=== PATIENT | female | born 1990 | race Caucasian/White ===

== ENCOUNTER 2018-03-24 22:18 | Emergency (ER) | payer OTHER ==
--- NOTE | 2018-03-24 22:19 | PDOC ---
History of Present Illness - General Chief Complaint: Pain, Acute Stated Complaint: FELL OFF LADDER HITTING BACK ON STAIRS Time Seen by Provider: 03/24/18 22:19 History Source: Patient Exam Limitations: No Limitations - History of Present Illness Initial Comments: 03/24/18 22:35 This is 27-year-old female who comes in complaining that she fell off the ladder. Patient said she fell about 3-4 feet and landed on a staircase. Patient hit her right side of her hip and buttock. Patient's complaining of pain to the right side of her hip and buttocks. Patient denies hitting her head, patient did not pass out patient denies any other injuries. Allergies: None Past Medical History: none Social history: Lives with family. No smoking. No alcohol. No illicit drugs. Surgical history: None General: No fevers or chills, no weakness, no weight loss HEENT: No change in vision. No sore throat,. No ear pain CardioVascular: no chest discomfort. No shortness of breath Respiratory:No cough, or wheezing. Gastrointestinal: no nausea, vomiting, diarrhea or constipation, No rectal bleeding Genitourinary: No dysuria, hematuria, or frequency Musculoskeletal: Right buttocks/hip pain Neurologic: No headache, vertigo, dizziness or loss of consciousness Psychiatric: nor depression Skin: No rashes or easy bruising Endocrine: no increased thirst or abnormal weight change Allergic: no skin or latex allergy All other systems reviewed and normal GENERAL: The patient is awake, alert, and fully oriented, in no acute distress. HEAD: Normal with no signs of trauma. EYES: Pupils equal, round and reactive to light, extraocular movements intact, sclera anicteric, conjunctiva clear. EXTREMITIES:atraumatic, Normal range of motion, no edema. BACK: There is no visible contusion swelling or ecchymosis there is some tenderness on palpation over the right buttock soft tissue there is some mild tenderness over the posterior pelvis on the right. There is no hip tenderness there is no cervical thoracic lumbar or sacral spine tenderness Neurovascular distal is intact NEUROLOGICAL: Normal speech, normal gait. PSYCH: Normal mood, normal affect. SKIN: Warm, Dry, normal turgor, no rashes or lesions noted. 03/25/11 22:52 X-ray pelvis shows no acute pathology fractures or dislocations Assessment plan: This is a 27-year-old female who comes in status post fall off of a ladder. Patient complaining of right buttocks pain. Patient had an x-ray of her pelvis that was negative for any acute pathology. Patient given Motrin and discharged home. Past History - Past Medical History Allergies/Adverse Reactions: Allergies Allergy/AdvReac Type Severity Reaction Status Date / Time No Known Allergies Allergy Verified 03/24/18 22:22 Home Medications: Ambulatory Orders Albuterol Sulfate Inhaler - [Ventolin HFA Inhaler -] 1 - 2 inh PO QID 11/30/13 Asthma: Yes - Suicide/Smoking/Psychosocial Hx Smoking History: Current some day smoker Number of Cigarettes Smoked Daily: 2 Hx Alcohol Use: Yes (OCC) Substance Use Type: None *DC/Admit/Observation/Transfer Diagnosis at time of Disposition: Contusion, buttock Qualifiers: Encounter type: initial encounter Qualified Code(s): S30.0XXA - Contusion of lower back and pelvis, initial encounter - Discharge Dispostion Disposition: HOME Condition at time of disposition: Stable Decision to Admit order: No - Referrals - Patient Instructions Additional Instructions: Take ibuprofen 600 mg 3 times a day with food don't take on an empty stomach take the ibuprofen for at least 5-6 days. The ibuprofen as an anti-inflammatory and will help with the inflammation as a result of your fall.. Return to the emergency department immediately with ANY new, persistent or worsening symptoms. Continue any medications as previously prescribed by your physician. You should follow up with your primary doctor as soon as possible regarding today's emergency department visit. . Please make sure your doctor reviews the results of your emergency evaluation. Thank you for coming to the Emergency Department today for your care. It was a pleasure to see you today. Please note that your evaluation is INCOMPLETE until you follow-up with your doctor. - Post Discharge Activity
[2018-03-24 22:33] VITALS: BP 145/99; PULSE 106; TEMP 98.4; BMI 24.0
[2018-03-24] MEDS ORDERED: IBUPROFEN 600 MG TABLET (FP) PO ONE ×2 (22:33→22:34)
== END 2018-03-24 23:00 | disposition home or self-care (01) ==
LOC: FER 22:18
DX: S30.0XXA Contusion of lower back and pelvis, initial encounter (principal); W11.XXXA Fall on and from ladder, initial encounter; Y93.89 Activity, other specified; Y92.89 Other specified places as the place of occurrence of the external cause
CPT/HCPCS: 72170-TC-FY; 84703; 99281-25

== ENCOUNTER 2019-04-12 11:20 | Emergency (ER) | payer OTHER ==
[2019-04-12 11:32] VITALS: BP 150/89; PULSE 72; TEMP 98.3; BMI 25.7
--- NOTE | 2019-04-12 11:33 | PDOC ---
History of Present Illness - General Chief Complaint: Injury Stated Complaint: R Middle Finger Injury - History of Present Illness Initial Comments: 04/12/19 11:45 28yo female with pmhx of asthma with R middle finger injury. Pt was visiting her grandmother upstairs in the hospital when she went to close the window and her finger got caught in the window. Pt with pain to R middle distal phalanx. Pt with small lac to palmar side of the finger- no active bleeding- no sutures required and subungal hematoma with lac in nail to release the blood. TTP over distal phalanx. Pt is R hand dominant. No other injuries or complaints. Tetanus utd. Pmhx: asthma Pshx: denies all: nkda Past History - Past Medical History Allergies/Adverse Reactions: Allergies Allergy/AdvReac Type Severity Reaction Status Date / Time No Known Allergies Allergy Verified 04/12/19 11:26 Home Medications: Ambulatory Orders Albuterol Sulfate Inhaler - [Ventolin HFA Inhaler -] 1 - 2 inh PO QID 11/30/13 Asthma: Yes COPD: No - Psycho Social/Smoking Cessation Hx Smoking History: Never smoked Have you smoked in the past 12 months: Yes Number of Cigarettes Smoked Daily: 2 'Breaking Loose' booklet given: 03/24/18 Hx Alcohol Use: No Drug/Substance Use Hx: No Substance Use Type: None Review of Systems - Review of Systems Able to Perform ROS?: Yes Is the patient limited Tunisian proficient: No Constitutional: No: Chills, Fever Respiratory: No: Cough, Shortness of Breath Cardiac (ROS): No: Chest Pain ABD/GI: No: Diarrhea, Nausea, Vomiting, Abdominal cramping : No: Burning Musculoskeletal: Yes: Joint Pain (R middle finger pain) Integumentary: Yes: Other (lac and subungal hematoma to R middle distal phalanx) Neurological: No: Headache, Numbness, Paresthesia All Other Systems: Reviewed and Negative *Physical Exam - Vital Signs Last Vital Signs Temp Pulse Resp BP Pulse Ox 98.3 F 72 16 150/89 100 04/12/19 11:27 04/12/19 11:27 04/12/19 11:27 04/12/19 11:27 04/12/19 11:27 - Physical Exam General Appearance: Yes: Nourished, Appropriately Dressed. No: Apparent Distress HEENT: positive: EOMI, Normal Voice Neck: positive: Supple Respiratory/Chest: positive: Lungs Clear, Normal Breath Sounds. negative: Respiratory Distress Cardiovascular: positive: Regular Rhythm, Regular Rate, S1, S2 Gastrointestinal/Abdominal: positive: Soft. negative: Guarding, Rebound, Tenderness Musculoskeletal: positive: Normal Inspection, Other (ambulatory in the ER with a steady gait) Extremity: positive: Other (R middle finger lac, sensation intact, ttp distal phalanx, subungal hematoma, FROM of the hand and digit, brisk cap refill, no active bleeding) Integumentary: positive: Other (R middle finger with subungal hematoma, lac through nail release subungal blood, ttp distal phalanx, small lac- no active bleeding to palmar surface of R middle finger distal phalanx) Neurologic: positive: Fully Oriented, Alert, Normal Mood/Affect, Motor Strength 08/16 Medical Decision Making - Medical Decision Making 04/12/19 11:50 28yo female with R middle finger injury -small palmar surface lac without active bleeding-superficial, no repair needed -subungal hematoma with lac in nail allowing drainage of the blood -nailbed intact -neurovasc intact -tetanus utd -will send for xray -will monitor and reassess 04/12/19 12:09 no acute fx seen on xray will place in splint will apply abx ointment stable for dc to home 04/12/19 12:13 xray neg discussed local wound care stable for dc to home and follow up with hand Discharge - Discharge Information Problems reviewed: Yes Clinical Impression/Diagnosis: Finger laceration, Hematoma, subungual, finger, right, Finger contusion Condition: Stable Disposition: HOME - Admission No - Follow up/Referral Referrals: Wai Ken DO [Staff Physician] - Hans Todd MD [Staff Physician] - - Patient Discharge Instructions Patient Printed Discharge Instructions: DI for Subdural Hematoma Additional Instructions: Please apply antibiotic ointment to the finger. Please keep the finger elevated. Please apply ice 20 min on and 20 min off. Please make an appointment to see your PMD and the hand specialist. Please return to the ED with any further concerns or complaints. - Post Discharge Activity
== END 2019-04-12 12:33 | disposition home or self-care (01) ==
LOC: FER 11:20
PROC: 2W3JX1Z Immobilization of Right Finger using Splint (ICD-10-PCS; principal; 2019-04-12)
DX: S61.212A Laceration without foreign body of right middle finger without damage to nail, initial encounter (principal); S60.031A Contusion of right middle finger without damage to nail, initial encounter; W20.8XXA Other cause of strike by thrown, projected or falling object, initial encounter; Y93.89 Activity, other specified; Y92.89 Other specified places as the place of occurrence of the external cause
CPT/HCPCS: 73130-TC-RT-FY; 99282-25

== ENCOUNTER 2022-09-21 07:14 | Emergency (ER) | payer OTHER ==
[2022-09-21 07:31] VITALS: RESP 18; BMI 22.6
[2022-09-21] MEDS ORDERED: ACETAMINOPHEN 1000 MG/100 ML BAG IVPB ONE ×2 (07:39→12:01)
[2022-09-21] MEDS ORDERED: SODIUM CHLORIDE 0.9% 500 ML INFUS.BAG IV ONE (07:39)
[2022-09-21] MEDS ORDERED: METOCLOPRAMIDE HCL INJECTION 10 MG/2 ML VIAL IVPUSH ONE (07:39)
[2022-09-21] MEDS ORDERED: METOCLOPRAMIDE HCL INJECTION 10 MG/2 ML VIAL ONE (07:48)
[2022-09-21] MEDS ORDERED: ACETAMINOPHEN INJECTION 100 ML IVPB ONE (07:49)
[2022-09-21] MEDS ORDERED: DEXAMETHASONE SOD PHOSPHATE 10 MG/1 ML VIAL IVPUSH ONE (08:04)
[2022-09-21] MEDS ORDERED: DEXAMETHASONE SOD PHOSPHATE 10 MG/1 ML VIAL ONE (08:09)
[2022-09-21] MEDS ORDERED: ONDANSETRON 4 MG/2 ML VIAL IVPUSH ONE (08:15)
[2022-09-21] MEDS ORDERED: ONDANSETRON 4 MG/2 ML VIAL ONE (08:24)
[2022-09-21 09:01] LABS: BASO % 0.2 % (0-2.0); EOS % 1.7 % (0-4.5); HEMATOCRIT 41.9 % (32.4-45.2); HEMOGLOBIN 14.5 GM/dL (10.7-15.3); LYMPH % 18.9 % (8-40); MCH 30.9 pg (25.7-33.7); MCHC 34.5 g/dl (32.0-36.0); MEAN CELL VOLUME 89.5 fl (80-96); MEAN PLT VOLUME 9.3 fl (7.5-11.1); NEUT % 74.2 % (42.8-82.8); PLATELET COUNT 241 10^3/uL (134-434); RBC 4.68 M/mm3 (3.60-5.2); RDW 13.4 % (11.6-15.6); WHITE BLOOD COUNT 9.8 K/mm3 (4.0-10.0)
[2022-09-21 09:04] LABS: EPI CELLS >36 /uL (0-25.1); HYALINE CASTS 0 /uL (0-3.1); PH,URINE 6.5 (5.0-8.0); URINE APPEARANCE CLEAR; URINE BACTERIA 2373 /uL (0-1359); URINE BILIRUBIN NEGATIVE (NEGATIVE); URINE COLOR YELLOW; URINE GLUCOSE (UA) NEGATIVE (NEGATIVE); URINE KETONE 1+ (NEGATIVE); URINE LEUK ESTERASE NEGATIVE (NEGATIVE); URINE NITRITE NEGATIVE (NEGATIVE); URINE PROTEIN 2+ (NEGATIVE); URINE RBC 7 /uL (0-23.9); URINE UROBILINOGEN 0.2 mg/dL (0.2-1.0); URINE WBC 19 /uL (0-25.8)
[2022-09-21 09:25] LABS: POTASSIUM 3.4 mmol/L (3.5-5.1)
[2022-09-21 09:27] LABS: BLOOD UREA NITROGEN 9.9 mg/dL (7-18); MAGNESIUM 2.1 mg/dL (1.8-2.4)
[2022-09-21 09:31] LABS: CREATININE 0.8 mg/dL (0.55-1.3)
[2022-09-21 09:33] LABS: BILIRUBIN,TOTAL 0.5 mg/dL (0.2-1); TOT PROT 7.6 g/dl (6.4-8.2)
[2022-09-21] MEDS ORDERED: MAGNESIUM SULF 50% (8.12 MEQ/2 ML-1 GM VIAL) IVPB ONE (10:06)
[2022-09-21] MEDS ORDERED: MAGNESIUM SULF 50% (8.12 MEQ/2 ML-1 GM VIAL) ONE (10:10)
[2022-09-21] MEDS ORDERED: KETOROLAC TROMETHAMINE 15 MG/ML VIAL IVPUSH ONE (10:19)
[2022-09-21] MEDS ORDERED: KETOROLAC TROMETHAMINE 15 MG/ML VIAL ONE (10:24)
[2022-09-21 12:25] VITALS: BP 118/79; PULSE 82; TEMP 98.1
== END 2022-09-21 12:34 | disposition home or self-care (01) ==
LOC: JER 07:14
PROC: 3E033NZ Introduction of Analgesics, Hypnotics, Sedatives into Peripheral Vein, Percutaneous Approach (ICD-10-PCS; principal; 2022-09-21)
PROC: 3E033GC Introduction of Other Therapeutic Substance into Peripheral Vein, Percutaneous Approach (ICD-10-PCS; 2022-09-21)
PROC: 3E033GC Introduction of Other Therapeutic Substance into Peripheral Vein, Percutaneous Approach (ICD-10-PCS; 2022-09-21)
PROC: 3E033GC Introduction of Other Therapeutic Substance into Peripheral Vein, Percutaneous Approach (ICD-10-PCS; 2022-09-21)
PROC: 3E033GC Introduction of Other Therapeutic Substance into Peripheral Vein, Percutaneous Approach (ICD-10-PCS; 2022-09-21)
PROC: 3E0333Z Introduction of Anti-inflammatory into Peripheral Vein, Percutaneous Approach (ICD-10-PCS; 2022-09-21)
DX: G43.909 Migraine, unspecified, not intractable, without status migrainosus (principal); R11.2 Nausea with vomiting, unspecified; I10 Essential (primary) hypertension
CPT/HCPCS: 36415; 70450-TC; 80053; 81003; 83735; 84703; 85025; 87086; 99284-25; J1100